=== PATIENT | female | born 1985 | race African-American/Black ===

== ENCOUNTER 2025-05-16 18:57 | Emergency (ER) | payer SELFPAY ==
[2025-05-16 18:59] VITALS: BP 155/100
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
[2025-05-16] MEDS: TYLENOL 1000 MG PO (21:09)
[2025-05-16] MEDS: MOTRIN 600 MG PO (21:09)
== END 2025-05-16 22:32 | disposition home or self-care (01) ==
LOC: EMR 18:57
PROVIDERS: EMERGENCY PHYSICIAN Emergency Medicine; FAMILY PHYSICIAN Family Medicine
DX: S16.1XXA Strain of muscle, fascia and tendon at neck level, initial encounter (principal); M79.601 Pain in right arm; M54.50 Low back pain, unspecified; V49.40XA Driver injured in collision with unspecified motor vehicles in traffic accident, initial encounter; Y92.410 Unspecified street and highway as the place of occurrence of the external cause; R03.0 Elevated blood-pressure reading, without diagnosis of hypertension
CPT/HCPCS: 99284; 72110; 72125